=== PATIENT | female | born 1975 | race Caucasian/White ===

== ENCOUNTER 2018-06-04 07:11 | Day surgery (SDC) | payer OTHER ==
[~2018-06-04 07:11] MED LIST: ETODOLAC500 M1 PO; RIZATRIPTAN10 M1 PO; VERAPAMIL HCL40 MG PO
[2018-06-04] MEDS ORDERED: ULTRACET PO (15:17)
[2018-06-04] MEDS ORDERED: NAPROXEN500 MG PO (15:17)
[2018-06-04] MEDS ORDERED: CEFTIN250 MG/5 M PO (15:17)
== END 2018-06-04 16:15 | disposition home or self-care (01) ==
LOC: CIR.AMB 07:11
DX: Z30.2 Encounter for sterilization (principal)

== ENCOUNTER 2018-10-07 08:00 | Day surgery (SDC) | payer OTHER ==
[~2018-10-07 08:00] MED LIST changes: +CEFTIN250 MG/5 M PO; +NAPROXEN500 MG PO; +ULTRACET PO
== END 2018-10-07 14:05 | disposition home or self-care (01) ==
LOC: AMB-ENDOS 08:00
DX: K64.8 Other hemorrhoids (principal); Z12.11 Encounter for screening for malignant neoplasm of colon

== ENCOUNTER 2018-10-07 11:17 | Outpatient (CLI) | payer OTHER | END 2018-10-07 12:26 | disposition home or self-care (01) | LOC: TOM 11:17 | DX: Z12.12 Encounter for screening for malignant neoplasm of rectum (principal); Z12.11 Encounter for screening for malignant neoplasm of colon; K60.1 Chronic anal fissure; K62.5 Hemorrhage of anus and rectum ==